=== PATIENT | male | born 1995 | race Caucasian/White ===

== ENCOUNTER 2017-03-30 13:23 | Emergency (ER) | payer BC ==
[2017-03-30] MEDS ORDERED: NS 1,000 ML IV ONE (14:27)
--- NOTE | 2017-03-30 14:31 | EDPHY ---
H & P Stated Complaint: witnessed sz yesterday, "limp with twitching 45 seconds" Time Seen by Provider: 03/30/17 14:11 HPI/ROS: CHIEF COMPLAINT: Seizure HISTORY OF PRESENT ILLNESS: Patient is a 21-year-old man who is concerned he may have had a seizure yesterday. He has a history of traumatic brain injury and small intracranial hemorrhage that was treated non operatively 3 years ago. He states that he cut his finger and fainted and hit the back of his head and had to stay in the hospital overnight. He has fainted twice before. Yesterday he was helping his friend move and went to the gas station. He got a Dr. pepper and snickers and when he opened the Dr. pepper and began drinking and he stated that it tasted funny. He felt that it tasted like CO2. He then felt a fluttering/pain in his left chest and felt himself himself "fade away". He was sitting in the truck. He states that he passed out and his friend said that he was limp but was making twitching movements for about 45 seconds. He was incontinent of urine. No vomiting. No abrasions to his toung. He then gradually awoke spontaneously. He states that it 1st he was confused but only for about 30 seconds. His friend got him a bottle of water which he drink ate the [employer] bar and then drove home. He has never had a seizure before. Today he feels completely normal. He did not feel ill prior to the event. REVIEW OF SYSTEMS: Constitutional: denies: chills, fever, recent illness, recent injury EENTM: denies: blurred vision, double vision, nose congestion Respiratory: denies: cough, shortness of breath Cardiac: See HPI Gastrointestinal/Abdominal: denies: abdominal pain, diarrhea, nausea, vomiting, blood streaked stools Genitourinary: denies: dysuria, frequency, hematuria, pain Musculoskeletal: denies: joint pain, muscle pain Skin: denies: lesions, rash, jaundice, bruising Neurological: See HPI Hematologic/Lymphatic: denies: blood clots, easy bleeding, easy bruising Immunologic/allergic: denies: HIV/AIDS, transplant EXAM: GENERAL: Well-appearing, well-nourished and in no acute distress. HEAD: Atraumatic, normocephalic. EYES: Pupils equal round and reactive to light, extraocular movements intact, sclera anicteric, conjunctiva are normal. ENT: TMs normal, nares patent, oropharynx clear without exudates. Moist mucous membranes. NECK: Normal range of motion, supple without lymphadenopathy or JVD. LUNGS: Breath sounds clear to auscultation bilaterally and equal. No wheezes rales or rhonchi. HEART: Regular rate and rhythm without murmurs, rubs or gallops. ABDOMEN: Soft, nontender, normoactive bowel sounds. No guarding, no rebound. No masses appreciated. BACK: No CVA tenderness, no spinal tenderness, step-offs or deformities EXTREMITIES: Normal range of motion, no pitting or edema. No clubbing or cyanosis. NEUROLOGICAL: Cranial nerves II through XII grossly intact. Normal speech, normal gait. 5/5 strength, normal movement in all extremities, normal sensation PSYCH: Normal mood, normal affect. SKIN: Warm, dry, normal turgor, no visible rashes or lesions. Source: Patient Exam Limitations: No limitations - Personal History Current Tetanus/Diphtheria Vaccine: Yes Tetanus Vaccine Date: 2014 - Medical/Surgical History Hx Asthma: No Hx Chronic Respiratory Disease: No Hx Diabetes: No Hx Cardiac Disease: No Hx Renal Disease: No Hx Cirrhosis: No Hx Alcoholism: No Hx HIV/AIDS: No Hx Splenectomy or Spleen Trauma: No Other PMH: PMH: TBI with ICH no surgery no surgery. dental extraction - Family History Significant Family History: No pertinent family hx - Social History Smoking Status: Never smoked Alcohol Use: Sober Drug Use: None Constitutional: Initial Vital Signs Temperature (C) 36.7 C 03/30/17 13:28 Heart Rate 67 03/30/17 13:28 Respiratory Rate 14 03/30/17 13:28 Blood Pressure 145/81 H 03/30/17 13:28 O2 Sat (%) 94 03/30/17 13:28 O2 Delivery Mode Room Air Allergies/Adverse Reactions: No Known Allergies Allergy (Unverified 03/30/17 13:28) Home Medications: Medication Instructions Recorded NK [No Known Home Meds] 03/30/17 Medical Decision Making - Diagnostics EKG Interpretation: An EKG obtained and was read and documented in trace view. Please see trace view for full reading and report. Sinus bradycardia, no acute ischemic changes , early repolarization consistent with young age and thin chest wall Imaging Results: Imaging Impressions Chest X-Ray 03/30/17 14:27 Impression: No acute pulmonary disease. Head CT 03/30/17 14:28 Impression: Normal. Findings and recommendations discussed with Dr. Erlin Garcia at 1515 hour, . Final report concurs with initial preliminary interpretation. Imaging: Discussed imaging studies w/ call or contact centre manager Radiologist ED Course/Re-evaluation: 3:45 p.m. we discussed the lab and imaging results. The patient feels completely fine at this time. It is not clear to me whether this of and represents more of a syncopal or seizure type event. Stable vital signs. The patient will follow up with Cardiology and Neurology. I advised him not to drive until he is cleared by them. Differential Diagnosis: Partial list of the Differential diagnosis considered include but were not limited to; syncope, seizure, arrhythmia and although unlikely based on the history and physical exam, I also considered acute coronary disease, dissection , PE. I discussed these differential diagnoses and the plan with the patient as well as the usual and expected course. The patient understands that the diagnosis is provisional and that in medicine we are not always correct and that further workup is often warranted. Usual and customary warnings were given. All of the patient's questions were answered. The patient was instructed to return to the emergency department should the symptoms at all worsen or return, otherwise to followup with the physician as we discussed. - Data Points Laboratory Results: Laboratory Results 03/30/17 14:50 03/30/17 14:50 03/30/17 03/30/17 14:50 14:50 WBC 7.37 10^3/uL 10^3/uL (3.80-9.50) RBC 5.30 10^6/uL 10^6/uL (4.40-6.38) Hgb 15.7 g/dL g/dL (13.7-17.5) Hct 45.6 % % (40.0-51.0) MCV 86.0 fL fL (81.5-99.8) MCH 29.6 pg pg (27.9-34.1) MCHC 34.4 g/dL g/dL (32.4-36.7) RDW 12.8 % % (11.5-15.2) Plt Count 280 10^3/uL 10^3/uL (150-400) MPV 9.8 fL fL (8.7-11.7) Neut % (Auto) 67.7 % % (39.3-74.2) Lymph % (Auto) 24.8 % % (15.0-45.0) [place] % (Auto) 6.4 % % (4.5-13.0) Eos % (Auto) 0.4 % L % (0.6-7.6) Baso % (Auto) 0.4 % % (0.3-1.7) Nucleat RBC Rel Count 0.0 % % (0.0-0.2) Absolute Neuts (auto) 4.99 10^3/uL 10^3/uL (1.70-6.50) Absolute Lymphs (auto) 1.83 10^3/uL 10^3/uL (1.00-3.00) Absolute Monos (auto) 0.47 10^3/uL 10^3/uL (0.30-0.80) Absolute Eos (auto) 0.03 10^3/uL 10^3/uL (0.03-0.40) Absolute Basos (auto) 0.03 10^3/uL 10^3/uL (0.02-0.10) Absolute Nucleated RBC 0.00 10^3/uL 10^3/uL (0-0.01) Immature Gran % 0.3 % % (0.0-1.1) Immature Gran # 0.02 10^3/uL 10^3/uL (0.00-0.10) Sodium 142 mEq/L mEq/L (134-144) Potassium 3.8 mEq/L mEq/L (3.5-5.2) Chloride 102 mEq/L mEq/L (97-110) Carbon Dioxide 25 mEq/l mEq/l (22-31) Anion Gap 15 mEq/L mEq/L (8-16) BUN 14 mg/dL mg/dL (7-23) Creatinine 1.1 mg/dL mg/dL (0.7-1.3) Estimated GFR > 60 Glucose 95 mg/dL mg/dL (70-100) Calcium 9.8 mg/dL mg/dL (8.5-10.4) Troponin I < 0.012 ng/mL ng/mL (0.000-0.034) Medications Given: Discontinued Medications Sodium Chloride (Ns) 1,000 mls @ 0 mls/hr IV EDNOW ONE; Wide Open PRN Reason: Protocol Stop: 03/30/17 14:28 Last Admin: 03/30/17 14:48 Dose: 1,000 mls Departure - Departure Disposition: Home, Routine, Self-Care Clinical Impression: Loss of consciousness Condition: Fair Instructions: New-Onset Seizure in Adults (ED) Referrals: ALLISON LAY [Other] - As per Instructions Koko Lockett MD [Medical Doctor] - As per Instructions Mandeep Willoughby MD [Medical Doctor] - As per Instructions
--- NOTE | 2017-03-30 14:42 | CPEKG ---
Heart Rate: 46 RR Interval: 1304 P-R Interval: 156 QRSD Interval: 92 QT Interval: 432 QTC Interval: 378 P [place]: 37 QRS [place]: 84 T Wave [place]: 35 EKG Severity - BORDERLINE ECG - EKG Impression: SINUS BRADYCARDIA EKG Impression: LVH BY VOLTAGE EKG Impression: ST ELEV, PROBABLE NORMAL EARLY REPOL PATTERN Electronically Signed By: Erlin Garcia 30-Mar-2017 14:54:56
[2017-03-30 14:54] VITALS: RESP 18
[2017-03-30 15:05] LABS: % IMMATURE GRANULYOCYTES 0.3 % (0.0-1.1); ABSOLUTE IMMATURE GRANULOCYTES 0.02 10^3/uL (0.00-0.10); ADD DIFF? NO; ADD MORPH? NO; ADD SCAN? NO; ATYPICAL LYMPHOCYTE FLAG 10 (0-99); FRAGMENT RBC FLAG 0 (0-99); HEMATOCRIT 45.6 % (40.0-51.0); HEMOGLOBIN 15.7 g/dL (13.7-17.5); LEFT SHIFT FLG 0 (0-99); LIPEMIA HEMOLYSIS FLAG 90 (0-99); MEAN CELL HEMOGLOBIN 29.6 pg (27.9-34.1); MEAN CELL HEMOGLOBIN CONCENTR. 34.4 g/dL (32.4-36.7); MEAN PLATELET VOLUME 9.8 fL (8.7-11.7); PLATELET CLUMPS FLAG 0 (0-99); PLATELET COUNT 280 10^3/uL (150-400); RED CELL DISTRIBUTION WIDTH 12.8 % (11.5-15.2)
[2017-03-30 15:14] LABS: ANION GAP 15 mEq/L (8-16); CALCIUM 9.8 mg/dL (8.5-10.4); CARBON DIOXIDE 25 mEq/l (22-31); CHLORIDE 102 mEq/L (97-110); CREATININE 1.1 mg/dL (0.7-1.3); GLOMERULAR FILTRATION RATE > 60; GLUCOSE 95 mg/dL (70-100); POTASSIUM 3.8 mEq/L (3.5-5.2); SODIUM 142 mEq/L (134-144)
[2017-03-30 15:26] LABS: TROPONIN I < 0.012 ng/mL (0.000-0.034)
[2017-03-30 16:01] VITALS: BP 128/79; PULSE 74; TEMP 98.2; O2SAT 97
== END 2017-03-30 16:01 | disposition home or self-care (01) ==
PROC: 3E0337Z Introduction of Electrolytic and Water Balance Substance into Peripheral Vein, Percutaneous Approach (ICD-10-PCS; principal; 2017-03-30)
DX: R55 Syncope and collapse (principal); E86.9 Volume depletion, unspecified

== ENCOUNTER 2017-08-11 06:39 | Emergency (ER) | payer BC ==
[2017-08-11] MEDS ORDERED: NS 1,000 ML IV ONE (06:53)
--- NOTE | 2017-08-11 06:59 | CPEKG ---
Heart Rate: 58 RR Interval: 1034 P-R Interval: 172 QRSD Interval: 96 QT Interval: 408 QTC Interval: 401 P [place]: 45 QRS [place]: 81 T Wave [place]: 41 EKG Severity - ABNORMAL ECG - EKG Impression: SINUS RHYTHM EKG Impression: PROBABLE LEFT VENTRICULAR HYPERTROPHY EKG Impression: ST ELEV, PROBABLE NORMAL EARLY REPOL PATTERN Electronically Signed By: Marquis Ball 11-Aug-2017 07:22:04
[2017-08-11 07:16] LABS: PLATELET COUNT 288 10^3/uL (150-400)
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
[2017-08-11 09:20] VITALS: RESP 12
[2017-08-11 09:44] VITALS: BP 114/72; PULSE 51; TEMP 97.7; O2SAT 98
--- NOTE | 2017-08-11 16:26 | ECHO ---
[email or web address] [address] [address] Main: [phone] Fax: Transthoracic Echocardiogram Name: JW TILLEY MR#: [id number] Study Date: 08/11/2017 Study Time: 08:27 AM Date of : 1995 Age: 22 year(s) Height: ( ) Weight: ( ) BSA: Gender: Male Examination: Indication: Multiple episodes of syncope Image Quality: Contrast: Requested by: Marquis Ball BP: / Heart Rate: Rhythm: Indication: Multiple episodes of syncope Procedure Staff Power Cleaner Operator: Shanice Kamara RDCS Reading Physician: Koko Lockett MD Requesting Provider: Power Cleaner Operator: Reading Physician: Koko Lockett MD Requesting Provider: Conclusions: Normal size left ventricle. No LV hypertrophy. Normal global systolic LV function. The ejection fraction is estimated to be 65-70 %. No regional wall motion abnormality. Normal size right ventricle. The left atrium is normal in size. The right atrium is normal in size. The mitral valve is normal in appearance and function. Trivial mitral valve regurgitation. The aortic valve is normal in appearance and function. Mild tricuspid regurgitation is present. No pericardial effusion. Measurements: Chambers Valvular Assessment AV/MV Valvular Assessment TV/PV Normal Normal Normal Name Value Range Name Value Range Name Value Range IVSd (2D): 0.7 cm (0.6 cm-1.1 AV Vmax: 1.35 m/s (1 m/s-1.7 TR Vmax: 2.32 mm/s ( - ) cm) m/s) TR PGmax: 22 mmHg ( - ) LVDd (2D): 4.9 cm (4.2 cm-5.9 AV maxP mmHg ( - ) syst. PAP: 27 mmHg ( - ) cm) AV meanP mmHg ( - ) LVDs (2D): 3.0 cm (2.1 cm-4 MV E Vmax: 0.86 m/s ( - ) cm) MV A Vmax: 0.29 m/s ( - ) LVPWd (2D): 0.7 cm (0.6 cm-1 MV E/A: 2.97 ( - ) cm) Patient: JW TILLEY Study Date: 08/11/2017 Page 1 of 2 08:27 AM LVEF (MOD4): 72 % (>=55 %) EF Range: 65-70 % Continued Measurements: Chambers Valvular Assessment AV/MV Valvular Assessment TV/PV Name Value Name Value Name Value LADs: 3.4 cm MV E/E' Septal: 6.50 CVP (est.): 5 mmHg LADs Lon.5 cm MV E/E' Lateral: 4.20 LA Area: 14.1 cm2 Additional Vessels Name Value Ao Ascendin.1 cm Findings: Left Ventricle: Normal size left ventricle. No LV hypertrophy. Normal global systolic LV function. The ejection fraction is estimated to be 65-70 %. No regional wall motion abnormality. Right Ventricle: Normal size right ventricle. Left Atrium: The left atrium is normal in size. Right Atrium: The right atrium is normal in size. Mitral Valve: The mitral valve is normal in appearance and function. Trivial mitral valve regurgitation. Aortic Valve: The aortic valve is normal in appearance and function. Tricuspid Valve: The tricuspid valve is normal in appearance and function. Mild tricuspid regurgitation is present. Pulmonic Valve: Pulmonary valve not well visualized. Aorta: The aorta is normal. Pericardium: No pericardial effusion. (No Signature Object) Patient: JW TILLEY Study Date: 08/11/2017 Page 2 of 2 08:27 AM [id number]
== END 2017-08-11 09:43 | disposition home or self-care (01) ==
DX: R55 Syncope and collapse (principal)

== ENCOUNTER → 2017-08-18 | Outpatient (CLI) | payer BC ==
--- NOTE | 2017-08-18 11:40 | CPEEG ---
[f rep st] ELECTROENCEPHALOGRAM DATE OF STUDY: 08/18/2017 INTERPRETATION: Normal EEG during wakefulness and sleep. There were no potentially epileptogenic ab normalities present during the recording. REPORT: This EEG contains 10-11 Hz alpha activity to the posterior head regions. There was no abnor mal activation at rest, during hyperventilation or photic stimulation. The patient became drowsy and fell asleep during the study. There was no abnormal activation during drowsiness, sleep, or during times of arousal. /[id number]/MODL
== END ==
LOC: FCPNEURO 07:40
PROVIDERS: ATTEND Psychiatry & Neurology Neurology
DX: R55 Syncope and collapse (principal)

== ENCOUNTER 2017-11-19 06:54 | Day surgery (SDC) | payer BC ==
[2017-11-19] MEDS ORDERED: NS 1,000 ML IV ONE (06:57)
--- NOTE | 2017-11-19 07:27 | CPEKG ---
Heart Rate: 49 RR Interval: 1224 P-R Interval: 156 QRSD Interval: 94 QT Interval: 448 QTC Interval: 405 P [place]: 44 QRS [place]: 89 T Wave [place]: 44 EKG Severity - OTHERWISE NORMAL ECG - EKG Impression: SINUS BRADYCARDIA EKG Impression: ST ELEV, PROBABLE NORMAL EARLY REPOL PATTERN Electronically Signed By: Koko Lockett 19-Nov-2017 16:00:57
[2017-11-19 07:32] LABS: PLATELET COUNT 270 10^3/uL (150-400)
--- NOTE | 2017-11-19 07:34 | PDHPUP ---
History & Physical Update H&P update statement: This history and physical update is based on an assessment of the patient which was completed after admission or registration (within 24 hours), but prior to the surgery/procedure. H&P update: H&P reviewed & patient examined, no change in patient's condition since H&P completed
[2017-11-19 07:44] LABS: INR 1.06 (0.83-1.16)
[2017-11-19] MEDS ORDERED: HEPARIN 10,000 UNIT/10 ML MDV (1,000 UNIT/ML) ONE (08:04)
[2017-11-19] MEDS ORDERED: LIDOCAINE 1% 300 MG/30 ML SDV ONE (08:04)
[2017-11-19] MEDS ORDERED: BUPIVACAINE 0.5% 30 ML SDV ONE (08:04)
[2017-11-19] MEDS ORDERED: ISOPROTERENOL HCL/D5W 0.2 MG/50 ML BAG IV ONE (08:05)
[2017-11-19] MEDS ORDERED: MIDAZOLAM 2 MG/2 ML VIAL IVP ONE (08:38)
--- NOTE | 2017-11-19 08:38 | PDANEPAE ---
ANE History of Present Illness syncope for EPS ANE Past Medical History - Cardiovascular History Hx Hypertension: No Hx Arrhythmias: Yes Hx Chest Pain: No Hx Coronary Artery / Peripheral Vascular Disease: No Hx CHF / Valvular Disease: No Hx Palpitations: No - Pulmonary History Hx COPD: No Hx Asthma/Reactive Airway Disease: No Hx Recent Upper Respiratory Infection: No Hx Oxygen in Use at Home: No - Endocrine History Hx Diabetes: No ANE Review of Systems Review of systems is: negative Review of Systems: - Exercise capacity Exercise capacity: >=4 METS ANE Patient History - Allergies Allergies/Adverse Reactions: No Known Allergies Allergy (Verified 08/11/17 06:48) - Home Medications Home medications: home medication list seen and reviewed Home Medications: NK [No Known Home Meds] 03/30/17 [Last Taken Unknown] - Anes Hx Anes Hx: no prior problems - Smoking Hx Smoking Status: Never smoked ANE Labs/Vital Signs - Labs Result Diagrams: 11/19/17 07:15 11/19/17 07:15 ANE Physical Exam - Airway Neck exam: FROM Mallampati Score: Class 1 Mouth exam: normal dental/mouth exam - Pulmonary Pulmonary: no respiratory distress - Cardiovascular Cardiovascular: regular rate and rhythym - ASA Status ASA Status: II ANE Anesthesia Plan Anesthesia Plan: general endotracheal anesthesia
[2017-11-19] MEDS ORDERED: fentaNYL 100 MCG/2 ML INJ ONE (08:39)
[2017-11-19] MEDS ORDERED: PROPOFOL 200 MG/20 ML VIAL ONE ×2 (08:39→09:05)
[2017-11-19] MEDS ORDERED: DEXAMETHASONE 4 MG/ML VIAL ONE (08:41)
[2017-11-19] MEDS ORDERED: ONDANSETRON 4 MG/2 ML VIAL ONE ×2 (08:41→14:13)
[2017-11-19] MEDS ORDERED: SUGAMMADEX SODIUM 200 MG/2 ML VIAL IVP ONE (09:37)
--- NOTE | 2017-11-19 11:14 | POSTANESTH ---
Post Anesthetic Evaluation Cardiovascular Status: Normal, Stable Respiratory Status: Normal, Stable Level of Consciousness/Mental Status: Can Participate in Eval, Mildly Sleepy, Arousable Pain Control: Adequate, Prn Tx Ordered Nausea/Vomiting Control: Adequate, Prn Tx Ordered Complications Possibly Related to Anesthesia: None Noted
[2017-11-19] MEDS ORDERED: HYDROCODONE/APAP 5/325 TAB PO PRN (12:23)
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
== END 2017-11-19 18:44 | disposition home or self-care (01) ==
LOC: FCATH 06:54
PROVIDERS: ATTEND Internal Medicine Cardiovascular Disease
PROC: 5A1213Z Performance of Cardiac Pacing, Intermittent (ICD-10-PCS; principal; 2017-11-19)
PROC: 02583ZZ Destruction of Conduction Mechanism, Percutaneous Approach (ICD-10-PCS; principal; 2017-11-19)
PROC: 4A023FZ Measurement of Cardiac Rhythm, Percutaneous Approach (ICD-10-PCS; principal; 2017-11-19)
DX: I47.1 Supraventricular tachycardia (principal)
CPT/HCPCS: C1730; J1100; J1644; J2250; J2405; J2704; J3010